=== PATIENT | female | born 1965 | race Two or more races ===

== ENCOUNTER 2017-05-04 10:03 | Emergency (ER) | payer BC, OTHER ==
[~2017-05-04] VITALS: Ht 154.9 cm; Wt 54.0 kg
[2017-05-04 10:13] VITALS: BP 108/60
[2017-05-04] MEDS ORDERED: KETOROLAC TROMETHAMINE INJ 60 MG/2 ML VIAL IM ONE (10:30)
[2017-05-04] MEDS ORDERED: KETOROLAC TROMETHAMINE INJ 30 MG/ML VIAL ONE (10:53)
--- NOTE | 2017-05-04 12:15 | NUR ---
Patient discharged to home in stable condition. Written and verbal after care instructions given. Patient verbalizes understanding of instruction.
== END 2017-05-04 12:15 | disposition home or self-care (01) ==
LOC: ER 10:08
DX: M54.5 Low back pain (principal); G89.29 Other chronic pain; G43.909 Migraine, unspecified, not intractable, without status migrainosus
CPT/HCPCS: 72131; 96372; 99284; A4606; J1885; Z7610

== ENCOUNTER 2017-05-18 09:39 | Outpatient (CLI) | payer BC, OTHER | END 2017-05-18 23:59 | disposition home or self-care (01) | LOC: MRI 09:39 | DX: M51.26 Other intervertebral disc displacement, lumbar region (principal); M51.27 Other intervertebral disc displacement, lumbosacral region; M48.07 Spinal stenosis, lumbosacral region; M48.06 Spinal stenosis, lumbar region; M41.86 Other forms of scoliosis, lumbar region; M89.8X8 Other specified disorders of bone, other site | CPT/HCPCS: 72148-TC ==

== ENCOUNTER 2017-06-06 09:57 | Outpatient (CLI) | payer BC, OTHER | END 2017-06-06 23:59 | disposition home or self-care (01) | LOC: RAD 09:57 | PROVIDERS: ATTEND Specialist | DX: M89.8X8 Other specified disorders of bone, other site (principal) | CPT/HCPCS: 78306; A9503 ==

== ENCOUNTER 2017-12-26 11:00 | Outpatient (CLI) | payer BC, OTHER | END 2017-12-26 23:59 | disposition home or self-care (01) | LOC: WOU 11:00 | PROVIDERS: ATTEND Podiatrist Foot & Ankle Surgery | DX: L60.0 Ingrowing nail (principal); M79.671 Pain in right foot | CPT/HCPCS: A6402; G0463 ==

== ENCOUNTER 2018-02-20 10:54 | Outpatient (CLI) | payer BC, OTHER | END 2018-02-20 23:59 | disposition home or self-care (01) | LOC: US 10:54 | DX: K21.0 Gastro-esophageal reflux disease with esophagitis (principal); R10.11 Right upper quadrant pain | CPT/HCPCS: 76700-TC ==

== ENCOUNTER 2018-02-28 11:12 | Outpatient (CLI) | payer BC, OTHER | END 2018-02-28 23:59 | disposition home or self-care (01) | LOC: WOU 11:12 | PROVIDERS: ATTEND Podiatrist Foot & Ankle Surgery | DX: M21.612 Bunion of left foot (principal) | CPT/HCPCS: G0463; Z7610 ==

== ENCOUNTER 2018-10-30 10:12 | Outpatient (CLI) | payer BC, OTHER | END 2018-10-30 23:59 | disposition home or self-care (01) | LOC: CT 10:12 | DX: N20.0 Calculus of kidney (principal); M41.86 Other forms of scoliosis, lumbar region ==

== ENCOUNTER 2018-11-04 11:30 | Outpatient (CLI) | payer BC, OTHER ==
[2018-11-04 11:48] LABS: APPEARANCE,URINE CLEAR (CLEAR); BILIRUBIN,URINE NEGATIVE (NEGATIVE); BLOOD, URINE NEGATIVE Ery/uL (NEGATIVE); COLOR,URINE YELLOW (YELLOW); KETONES,URINE NEGATIVE (NEGATIVE); LEUKOCYTE ESTERASE ,URINE 1+ (NEGATIVE); NITRITE, URINE NEGATIVE (NEGATIVE); PROTEIN,URINE NEGATIVE (NEGATIVE); UGLUCOSE NEGATIVE (NEGATIVE); UROBILINOGEN,URINE 0.2 EU/dL (0.2)
[2018-11-04 11:53] LABS: BACTERIA,URINE Few /HPF (None Seen); RBC,URINE 0-2 /HPF (0-2)
== END 2018-11-04 23:59 | disposition home or self-care (01) ==
LOC: LAB 11:30
DX: N39.0 Urinary tract infection, site not specified (principal)
CPT/HCPCS: 81000-TC; 87086-TC

== ENCOUNTER 2019-02-16 19:29 | Emergency (ER) | payer BC, OTHER ==
[~2019-02-16] VITALS: Ht 154.9 cm; Wt 54.0 kg
--- NOTE | 2019-02-16 19:55 | NUR ---
PT BIBSELF C/O R FLANK PAIN AND FEELING LIKE SHE CAN'T EMPTY HER BLADDER X 3 DAYS. PATIENT STATES SHE HAS HX UTI/KIDNEY STONES. PT AOX4. NAD NOTED. RESP EVEN AND UNLABORED. PT ON MONITOR IN BED 11 WITH FAMILY AT BEDSIDE. WILL CONTINUE TO MONITOR.
--- NOTE | 2019-02-16 20:07 | NUR ---
URINE SPECIMEN OBTAINED AND SENT TO THE LAB.
--- NOTE | 2019-02-16 20:18 | NUR ---
SENT URINE TO LAB
[2019-02-16] MEDS ORDERED: KETOROLAC TROMETHAMINE INJ 60 MG/2 ML VIAL IM ONE (20:30)
[2019-02-16 20:39] LABS: APPEARANCE,URINE Clear (CLEAR); BILIRUBIN,URINE Negative (NEGATIVE); BLOOD, URINE Trace-intact Ery/uL (NEGATIVE); COLOR,URINE Yellow (YELLOW); KETONES,URINE Negative (NEGATIVE); LEUKOCYTE ESTERASE ,URINE Small (NEGATIVE); NITRITE, URINE Negative (NEGATIVE); PROTEIN,URINE Negative (NEGATIVE); UGLUCOSE Negative (NEGATIVE); UROBILINOGEN,URINE 0.2 EU/dL (0.2)
[2019-02-16] MEDS ORDERED: KETOROLAC TROMETHAMINE INJ 30 MG/ML VIAL ONE (20:52)
[2019-02-16 20:59] VITALS: BP 103/68
[2019-02-16 21:03] LABS: BACTERIA,URINE Few /HPF (None Seen); SQUAMOUS EPITHELIAL CELL,UR Few /HPF (None Seen)
[2019-02-16] MEDS ORDERED: NITROFURANTOIN MACROCRYSTAL 50 MG CAPSULE PO STA (21:28)
[2019-02-16] MEDS ORDERED: NITROFURANTOIN/NITROFURAN MAC 100 MG CAPSULE ONE (21:40)
--- NOTE | 2019-02-16 21:45 | NUR ---
U/S COMPLETED. PT TOELRATED WELL.
[2019-02-16] MEDS ORDERED: TAMSULOSIN 0.4 MG CAP.SR.24H PO ONE (22:00)
[2019-02-16] MEDS ORDERED: TAMSULOSIN 0.4 MG CAP.SR.24H ONE (22:08)
--- NOTE | 2019-02-16 22:14 | NUR ---
Patient discharged to home in stable condition. Written and verbal after care instructions given. Patient verbalizes understanding of instruction. PT AMBULATORY WITH STEADY GAIT ACCOMPANIED BY FAMILY.
== END 2019-02-16 22:18 | disposition home or self-care (01) ==
LOC: ER 19:32
DX: N23 Unspecified renal colic (principal); G43.909 Migraine, unspecified, not intractable, without status migrainosus; M54.9 Dorsalgia, unspecified; G89.29 Other chronic pain; Z87.440 Personal history of urinary (tract) infections; Z87.442 Personal history of urinary calculi; Z98.890 Other specified postprocedural states
CPT/HCPCS: 76770; 81001; 87077; 87086; 87186; 96372; 99284; J1885; 81000-TC

== ENCOUNTER 2019-02-18 12:06 | Emergency (ER) | payer BC, OTHER ==
[~2019-02-18] VITALS: Ht 154.9 cm; Wt 53.5 kg
--- NOTE | 2019-02-18 12:25 | NUR ---
C/O ACEVEDO & RT FLANK PAIN RAD TO PELVIC AREA. PT WAS SEEN HERE LAST SUN DX W/ KIDNEY STONE PER PT. STATES SHE HAS NOT YET PASSED STONE, TOOK VICODIN LAST NIGHT. NO ACUTE DISTRESS NOTED, NO OTHER COMPLAINTS AT THIS TIME. PAIN IS 8/10. MADE COMFORTABLE AND READY FOR EVAL.
--- NOTE | 2019-02-18 12:35 | NUR ---
FRANK SALDIVAR AT BEDSIDE FOR EVAL
[2019-02-18] MEDS ORDERED: MORPHINE SULFATE INJ 2 MG/ML DISP.SYRIN ONE (12:51)
[2019-02-18] MEDS ORDERED: ONDANSETRON HCL/PF 4 MG/2 ML VIAL ONE (12:51)
[2019-02-18] MEDS ORDERED: ONDANSETRON HCL/PF 4 MG/2 ML VIAL IVP ONE (13:00)
[2019-02-18] MEDS ORDERED: IV NS 0.9% 1,000 ML BAG IV ONE (13:00)
[2019-02-18] MEDS ORDERED: MORPHINE SULFATE INJ 2 MG/ML DISP.SYRIN IV ONE (13:00)
[2019-02-18 13:03] LABS: BASOPHILS % (AUTO) 0.3 % (0.0-2.0); EOSINOPHILS % (AUTO) 5.6 % (0.0-6.0); HEMATOCRIT 38 % (33-45); HEMOGLOBIN 13.1 g/dL (11.5-14.8); LYMPHOCYTES # (AUTO) 0.5 /CMM (0.8-4.8); LYMPHOCYTES % (AUTO) 9.6 % (20.0-44.0); MEAN CORPUSCULAR HGB CONC 34 g/dl (31.0-36.0); MEAN CORPUSCULAR VOLUME 88 fL (82-100); MONOCYTES # (AUTO) 0.3 /CMM (0.1-1.30); MONOCYTES % (AUTO) 6.3 % (2.0-12.0); NEUTROPHILS # (AUTO) 3.8 /CMM (1.8-8.9); NEUTROPHILS % (AUTO) 78.2 % (43.0-81.0); PLATELET COUNT (AUTO) 147 /CMM (150-450); RED BLOOD CELL COUNT(AUTO) 4.39 MIL/uL (4.0-5.2); WHITE BLOOD COUNT (AUTO) 4.8 K/uL (4.3-11.0)
[2019-02-18 13:14] LABS: CALCIUM, SERUM 8.6 mg/dL (8.5-10.1); CREATININE 0.6 mg/dL (0.6-1.3); POTASSIUM 3.8 mmol/L (3.5-5.1)
[2019-02-18 13:24] LABS: APPEARANCE,URINE Clear (CLEAR); BILIRUBIN,URINE Negative (NEGATIVE); BLOOD, URINE Moderate Ery/uL (NEGATIVE); COLOR,URINE Yellow (YELLOW); KETONES,URINE Negative (NEGATIVE); PROTEIN,URINE Trace mg/dl (NEGATIVE); UGLUCOSE Negative (NEGATIVE); UROBILINOGEN,URINE 0.2 EU/dL (0.2)
[2019-02-18 13:30] LABS: LEUKOCYTE ESTERASE ,URINE NEGATIVE (NEGATIVE); NITRITE, URINE NEGATIVE (NEGATIVE)
[2019-02-18 13:31] LABS: BACTERIA,URINE Rare /HPF (None Seen); SQUAMOUS EPITHELIAL CELL,UR Few /HPF (None Seen)
--- NOTE | 2019-02-18 14:12 | NUR ---
IV removed. Catheter intact and site benign. Pressure and 4x4 applied to site. No bleeding noted.Patient discharged to home in stable condition. Written and verbal after care instructions given. Patient verbalizes understanding of instruction.
[2019-02-18 14:15] VITALS: BP 123/53
== END 2019-02-18 14:12 | disposition home or self-care (01) ==
LOC: ER 12:06
DX: G43.909 Migraine, unspecified, not intractable, without status migrainosus (principal); N23 Unspecified renal colic; G89.29 Other chronic pain; M54.9 Dorsalgia, unspecified; Z87.440 Personal history of urinary (tract) infections; Z87.442 Personal history of urinary calculi; Z98.890 Other specified postprocedural states
CPT/HCPCS: 36415; 80048; 81001; 85025; 87077; 87086; 87186; 96374; 96375; 99284; J2270; J2405; J7030; 81000-TC

== ENCOUNTER 2019-02-27 09:56 | Outpatient (CLI) | payer BC | END 2019-02-27 23:59 | disposition home or self-care (01) | LOC: US 09:56 | PROVIDERS: ATTEND Nurse Practitioner Acute Care | DX: I67.82 Cerebral ischemia (principal); G31.89 Other specified degenerative diseases of nervous system; N21.0 Calculus in bladder | CPT/HCPCS: 70551-TC; 76770-TC ==

== ENCOUNTER 2019-03-17 09:44 | Outpatient (CLI) | payer BC, OTHER ==
[2019-03-17 10:08] LABS: APPEARANCE,URINE CLEAR (CLEAR); BILIRUBIN,URINE NEGATIVE (NEGATIVE); BLOOD, URINE NEGATIVE Ery/uL (NEGATIVE); COLOR,URINE YELLOW (YELLOW); KETONES,URINE NEGATIVE (NEGATIVE); LEUKOCYTE ESTERASE ,URINE 1+ (NEGATIVE); NITRITE, URINE NEGATIVE (NEGATIVE); PROTEIN,URINE NEGATIVE (NEGATIVE); UGLUCOSE NEGATIVE (NEGATIVE); UROBILINOGEN,URINE 0.2 EU/dL (0.2)
[2019-03-17 10:18] LABS: BACTERIA,URINE Few /HPF (None Seen); RBC,URINE 0-2 /HPF (0-2); SQUAMOUS EPITHELIAL CELL,UR Few /HPF (None Seen); YEAST,URINE Rare /HPF (None Seen)
== END 2019-03-17 23:59 | disposition home or self-care (01) ==
LOC: LAB 09:44
DX: N39.0 Urinary tract infection, site not specified (principal)
CPT/HCPCS: 81000-TC; 87086-TC

== ENCOUNTER 2019-05-18 06:51 | Emergency (ER) | payer BC, OTHER ==
[~2019-05-18] VITALS: Ht 154.9 cm; Wt 51.7 kg
[2019-05-18 06:59] VITALS: BP 144/65
--- NOTE | 2019-05-18 07:07 | NUR ---
AT BEDSIDE FOR EVAL.
[2019-05-18] MEDS ORDERED: CYCLOBENZAPRINE 10 MG TABLET ONE (07:28)
[2019-05-18] MEDS ORDERED: ACETAMINOPHEN ES 500 MG TABLET ONE (07:28)
[2019-05-18] MEDS ORDERED: MORPHINE SULFATE INJ 4 MG/ML DISP.SYRIN ONE (07:28)
[2019-05-18] MEDS ORDERED: ACETAMINOPHEN ES 500 MG TABLET PO ONE (07:30)
[2019-05-18] MEDS ORDERED: CYCLOBENZAPRINE 10 MG TABLET PO ONE (07:30)
[2019-05-18] MEDS ORDERED: MORPHINE SULFATE INJ 2 MG/ML DISP.SYRIN IM ONE (07:30)
--- NOTE | 2019-05-18 07:36 | NUR ---
URINE SPECIMEN COLLECTED AND SENT TO LAB.
[2019-05-18 07:53] LABS: APPEARANCE,URINE Clear (CLEAR); BILIRUBIN,URINE Negative (NEGATIVE); BLOOD, URINE Trace-intact Ery/uL (NEGATIVE); COLOR,URINE Yellow (YELLOW); KETONES,URINE Negative (NEGATIVE); LEUKOCYTE ESTERASE ,URINE Negative (NEGATIVE); NITRITE, URINE Negative (NEGATIVE); PROTEIN,URINE Negative (NEGATIVE); UGLUCOSE Negative (NEGATIVE); UROBILINOGEN,URINE 0.2 EU/dL (0.2)
[2019-05-18 07:57] LABS: BACTERIA,URINE Rare /HPF (None Seen); RBC,URINE 0-2 /HPF (0-2); SQUAMOUS EPITHELIAL CELL,UR Few /HPF (None Seen); WBC,URINE 0-2 /HPF (0-3)
--- NOTE | 2019-05-18 08:10 | NUR ---
Patient discharged to home in stable condition. Written and verbal after care instructions given. Patient verbalizes understanding of instruction.
== END 2019-05-18 08:13 | disposition home or self-care (01) ==
LOC: ER 06:54
DX: M54.5 Low back pain (principal); G89.29 Other chronic pain; R03.0 Elevated blood-pressure reading, without diagnosis of hypertension; G43.909 Migraine, unspecified, not intractable, without status migrainosus; Z87.440 Personal history of urinary (tract) infections; Z87.442 Personal history of urinary calculi; Z98.890 Other specified postprocedural states
CPT/HCPCS: 81001; 96372; 99283; J2270; 81000-TC

== ENCOUNTER 2019-05-28 10:01 | Outpatient (CLI) | payer BC | END 2019-05-28 23:59 | disposition home or self-care (01) | LOC: MRI 10:01 | DX: M51.16 Intervertebral disc disorders with radiculopathy, lumbar region (principal); M53.3 Sacrococcygeal disorders, not elsewhere classified; M12.88 Other specific arthropathies, not elsewhere classified, other specified site | CPT/HCPCS: 72148-TC ==

== ENCOUNTER 2020-09-06 10:42 | Emergency (ER) | payer BC ==
[~2020-09-06] VITALS: Ht 154.9 cm; Wt 49.9 kg
[2020-09-06 10:49] VITALS: BP 138/72
== END 2020-09-06 11:13 | disposition home or self-care (01) ==
LOC: ER 10:43
DX: J02.9 Acute pharyngitis, unspecified (principal); Z20.828 Contact with and (suspected) exposure to other viral communicable diseases
CPT/HCPCS: 87426; 99283; C9803

== ENCOUNTER 2020-09-17 09:16 | Outpatient (CLI) | payer BC | END 2020-09-17 23:59 | disposition home or self-care (01) | LOC: RAD 09:16 | DX: M50.821 Other cervical disc disorders at C4-C5 level (principal); M43.12 Spondylolisthesis, cervical region | CPT/HCPCS: 72040-TC ==

== ENCOUNTER 2020-10-24 17:49 | Emergency (ER) | payer BC ==
[~2020-10-24] VITALS: Ht 154.9 cm; Wt 50.8 kg
[2020-10-24 18:07] VITALS: BP 137/71
[2020-10-24] MEDS ORDERED: ACETAMINOPHEN ES 500 MG TABLET ONE ×2 (18:29→18:45)
[2020-10-24] MEDS ORDERED: ACETAMINOPHEN 325 MG TABLET PO ONE (18:30)
[2020-10-24] MEDS ORDERED: BACI30OI9 TP (19:13)
[2020-10-24] MEDS ORDERED: IBUP-1955 PO (19:13)
== END 2020-10-24 19:35 | disposition home or self-care (01) ==
LOC: ER 17:54
DX: S02.82XA Fracture of other specified skull and facial bones, left side, initial encounter for closed fracture (principal); S60.812A Abrasion of left wrist, initial encounter; S50.312A Abrasion of left elbow, initial encounter; G43.909 Migraine, unspecified, not intractable, without status migrainosus; M54.9 Dorsalgia, unspecified; G89.29 Other chronic pain; Z87.442 Personal history of urinary calculi; Z87.440 Personal history of urinary (tract) infections; Z98.890 Other specified postprocedural states; Z79.899 Other long term (current) drug therapy; W01.0XXA Fall on same level from slipping, tripping and stumbling without subsequent striking against object, initial encounter; Y93.01 Activity, walking, marching and hiking; Y92.89 Other specified places as the place of occurrence of the external cause; Y99.8 Other external cause status
CPT/HCPCS: 73080-TC; 73110

== ENCOUNTER 2021-01-05 14:44 | Outpatient (CLI) | payer BC ==
[~2021-01-05 14:44] MED LIST: BACI30OI9 TP; IBUP-1955 PO
== END 2021-01-05 23:59 | disposition home or self-care (01) ==
LOC: WOU 14:44
PROVIDERS: ATTEND Podiatrist Foot & Ankle Surgery
DX: L60.0 Ingrowing nail (principal); M20.12 Hallux valgus (acquired), left foot; B35.1 Tinea unguium; M79.672 Pain in left foot
CPT/HCPCS: 73630-TC; 88304-TC; 88311-TC; 88312-TC; G0463

== ENCOUNTER 2021-01-12 14:30 | Outpatient (CLI) | payer BC | END 2021-01-12 23:59 | disposition home or self-care (01) | LOC: WOU 14:30 | PROVIDERS: ATTEND Podiatrist Foot & Ankle Surgery | DX: M20.12 Hallux valgus (acquired), left foot (principal); B35.1 Tinea unguium; L60.0 Ingrowing nail; M79.672 Pain in left foot | CPT/HCPCS: G0463 ==

== ENCOUNTER 2021-02-20 19:25 | Emergency (ER) | payer BC ==
[~2021-02-20] VITALS: Ht 154.9 cm; Wt 50.8 kg
--- NOTE | 2021-02-20 19:35 | NUR ---
PRESENTED TO THE ER FOR C/O L FLANK AND URINARY FREQUENCY X 1 DAY. HX OF LEFT KIDNEY STONE.
--- NOTE | 2021-02-20 19:40 | NUR ---
DR GUNTER AT BED SIDE
--- NOTE | 2021-02-20 19:51 | NUR ---
URINE COLLECTED AND SENT TO LAB, PT WAS TAKEN TO CT BY W/C
[2021-02-20 19:59] LABS: BASOPHILS % (AUTO) 0.2 % (0.0-2.0); EOSINOPHILS % (AUTO) 0.1 % (0.0-6.0); HEMATOCRIT 40 % (33-45); HEMOGLOBIN 13.5 g/dL (11.5-14.8); LYMPHOCYTES # (AUTO) 0.9 /CMM (0.8-4.8); LYMPHOCYTES % (AUTO) 14.2 % (20.0-44.0); MEAN CORPUSCULAR HGB CONC 34 g/dl (31.0-36.0); MEAN CORPUSCULAR VOLUME 89 fL (82-100); MONOCYTES # (AUTO) 0.5 /CMM (0.1-1.30); MONOCYTES % (AUTO) 8.2 % (2.0-12.0); NEUTROPHILS # (AUTO) 5.1 /CMM (1.8-8.9); NEUTROPHILS % (AUTO) 77.3 % (43.0-81.0); PLATELET COUNT (AUTO) 180 /CMM (150-450); RED BLOOD CELL COUNT(AUTO) 4.49 MIL/uL (4.0-5.2); WHITE BLOOD COUNT (AUTO) 6.6 K/uL (4.3-11.0)
[2021-02-20 20:08] LABS: BILIRUBIN,URINE NEGATIVE (NEGATIVE); COLOR,URINE YELLOW (YELLOW); LEUKOCYTE ESTERASE ,URINE MODERATE (NEGATIVE); NITRITE, URINE NEGATIVE (NEGATIVE); PROTEIN,URINE NEGATIVE (NEGATIVE); UGLUCOSE NEGATIVE (NEGATIVE); UROBILINOGEN,URINE 0.2 EU/dL (0.2)
[2021-02-20 20:17] LABS: BACTERIA,URINE 2+ /HPF (None Seen); SQUAMOUS EPITHELIAL CELL,UR 0-2 /HPF (None Seen); WBC,URINE 21-50 /HPF (0-3)
[2021-02-20 20:17] LABS: CALCIUM, SERUM 8.8 mg/dL (8.5-10.1); CREATININE 0.7 mg/dL (0.6-1.3)
[2021-02-20] MEDS ORDERED: CEPH500C2 PO (21:53)
--- NOTE | 2021-02-20 22:24 | NUR ---
Patient discharged to home in stable condition. Written and verbal after care instructions given. Patient verbalizes understanding of instruction. ambulatory with a steady gait noted.
[2021-02-20 22:25] VITALS: BP 132/64
== END 2021-02-20 22:25 | disposition home or self-care (01) ==
LOC: ER 19:26
DX: N39.0 Urinary tract infection, site not specified (principal); G43.909 Migraine, unspecified, not intractable, without status migrainosus; G89.29 Other chronic pain; Z98.890 Other specified postprocedural states; Z87.442 Personal history of urinary calculi
CPT/HCPCS: 36415; 80048-TC; 81001; 85025-TC; 87086-TC

== ENCOUNTER 2021-04-21 10:58 | Outpatient (CLI) | payer BC ==
[~2021-04-21 10:58] MED LIST changes: +CEPH500C2 PO
[2021-04-21 11:59] LABS: BASOPHILS % (AUTO) 0.3 % (0.0-2.0); BILIRUBIN,URINE NEGATIVE (NEGATIVE); COLOR,URINE YELLOW (YELLOW); EOSINOPHILS % (AUTO) 0.8 % (0.0-6.0); HEMATOCRIT 41 % (33-45); LEUKOCYTE ESTERASE ,URINE NEGATIVE (NEGATIVE); LYMPHOCYTES # (AUTO) 1.1 K/uL (0.8-4.8); MEAN CORPUSCULAR HGB CONC 34 g/dl (31.0-36.0); MEAN CORPUSCULAR VOLUME 88 fL (82-100); MONOCYTES # (AUTO) 0.5 K/uL (0.1-1.30); MONOCYTES % (AUTO) 10.2 % (2.0-12.0); NEUTROPHILS # (AUTO) 3.1 K/uL (1.8-8.9); NEUTROPHILS % (AUTO) 64.7 % (43.0-81.0); NITRITE, URINE NEGATIVE (NEGATIVE); PH,URINE 5.5 (5.0-8.0); PLATELET COUNT (AUTO) 182 K/uL (150-450); PROTEIN,URINE NEGATIVE (NEGATIVE); RED BLOOD CELL COUNT(AUTO) 4.65 MIL/uL (4.0-5.2); UGLUCOSE NEGATIVE (NEGATIVE); UROBILINOGEN,URINE 0.2 EU/dL (0.2); WHITE BLOOD COUNT (AUTO) 4.7 K/uL (4.3-11.0)
[2021-04-21 12:13] LABS: BACTERIA,URINE None seen /HPF (None Seen); RBC,URINE 0-2 /HPF (0-2); SQUAMOUS EPITHELIAL CELL,UR Few /HPF (None Seen); WBC,URINE NONE SEEN /HPF (0-3)
[2021-04-21 12:40] LABS: C-REACTIVE PROTEIN 0.2 mg/dL (0.0-0.9); THYROID STIMULATING HORMONE 1.713 uIU/mL (0.358-3.74)
[2021-04-21 12:52] LABS: ALBUMIN 3.9 g/dL (3.4-5.0); BILIRUBIN,TOTAL 0.5 mg/dL (0.2-1.0); CALCIUM, SERUM 9.2 mg/dL (8.5-10.1); CREATININE 0.6 mg/dL (0.6-1.3); POTASSIUM 4.1 mmol/L (3.5-5.1)
[2021-04-22 08:07] LABS: IMMUNOGLOBULIN A, SERUM 200 mg/dL (87-352); T3 TOTAL 81 ng/dL (71-180); THYROID PEROXIDASE (TPO) AB <8 IU/mL (0-34)
== END 2021-04-21 23:59 | disposition home or self-care (01) ==
LOC: LAB 10:58
PROVIDERS: ATTEND Internal Medicine
DX: R00.2 Palpitations (principal)
CPT/HCPCS: 36415; 80053-TC; 80061-TC; 81001; 82306; 82607-TC; 82728-TC; 82784; 83540-TC; 84439-TC; 84443-TC; 84480; 85025-TC; 85652-TC; 86140-TC; 86376; 86800

== ENCOUNTER 2022-01-16 19:35 | Emergency (ER) | payer BC, OTHER ==
[~2022-01-16] VITALS: Ht 154.9 cm; Wt 51.7 kg
[2022-01-16 19:57] VITALS: BP 110/64
[2022-01-16] MEDS ORDERED: IBUP-1957 PO (20:11)
--- NOTE | 2022-01-16 20:19 | NUR ---
Patient discharged to home in stable condition. Written and verbal after care instructions given. Patient verbalizes understanding of instruction.
== END 2022-01-16 22:08 | disposition home or self-care (01) ==
LOC: ER 19:40
DX: J04.0 Acute laryngitis (principal); G43.909 Migraine, unspecified, not intractable, without status migrainosus; G89.29 Other chronic pain; Z98.890 Other specified postprocedural states

== ENCOUNTER 2022-07-06 12:51 | Outpatient (CLI) | payer BC, OTHER ==
[~2022-07-06 12:51] MED LIST changes: +IBUP-1957 PO
== END 2022-07-06 23:59 | disposition home or self-care (01) ==
LOC: MRI 12:51
PROVIDERS: ATTEND Internal Medicine
DX: M25.78 Osteophyte, vertebrae (principal); M54.12 Radiculopathy, cervical region
CPT/HCPCS: 72141-TC

== ENCOUNTER 2022-12-25 11:55 | Emergency (ER) | payer BC, OTHER ==
[~2022-12-25] VITALS: Ht 154.9 cm; Wt 52.2 kg
[2022-12-25 12:04] VITALS: BP 128/77
--- NOTE | 2022-12-25 12:04 | NUR ---
C/O LEFT EAR PAIN X 3 DAYS. VITALS ARE WITHIN NORMAL LIMITS.
[2022-12-25] MEDS ORDERED: NEOM10DR11 LEFT EAR (12:11)
--- NOTE | 2022-12-25 12:15 | NUR ---
Patient discharged to home in stable condition. Written and verbal after care instructions given. Patient verbalizes understanding of instruction.
== END 2022-12-25 12:16 | disposition home or self-care (01) ==
LOC: ER 11:55
DX: H60.92 Unspecified otitis externa, left ear (principal); G43.909 Migraine, unspecified, not intractable, without status migrainosus; G89.29 Other chronic pain; Z87.442 Personal history of urinary calculi; Z87.440 Personal history of urinary (tract) infections

== ENCOUNTER 2023-09-27 14:55 | Emergency (ER) | payer BC, OTHER ==
[~2023-09-27] VITALS: Ht 154.9 cm; Wt 50.8 kg
[~2023-09-27 14:55] MED LIST changes: +NEOM10DR11 LEFT EAR
[2023-09-27 15:40] LABS: BASOPHILS % (AUTO) 0.4 % (0.0-2.0); EOSINOPHILS % (AUTO) 0.4 % (0.0-6.0); HEMATOCRIT 43 % (33-45); HEMOGLOBIN 14.4 g/dL (11.5-14.8); LYMPHOCYTES # (AUTO) 1.2 K/uL (0.8-4.8); LYMPHOCYTES % (AUTO) 20.6 % (20.0-44.0); MEAN CORPUSCULAR HEMOGLOBIN 30 PG (26.0-33.0); MEAN CORPUSCULAR HGB CONC 34 g/dl (31.0-36.0); MEAN CORPUSCULAR VOLUME 88 fL (82-100); MONOCYTES # (AUTO) 0.4 K/uL (0.1-1.30); MONOCYTES % (AUTO) 6.8 % (2.0-12.0); NEUTROPHILS # (AUTO) 4.3 K/uL (1.8-8.9); NEUTROPHILS % (AUTO) 71.8 % (43.0-81.0); PLATELET COUNT (AUTO) 167 K/uL (150-450); RED BLOOD CELL COUNT(AUTO) 4.85 MIL/uL (4.0-5.2); RED CELL DISTRIBUTION WIDTH 13.4 % (11.5-15.0)
[2023-09-27 15:49] LABS: CALCIUM, SERUM 9.4 mg/dL (8.5-10.1); CHLORIDE 102 mmol/L (98-107); CREATININE 0.6 mg/dL (0.6-1.3); GLUCOSE 108 mg/dL (74-106); POTASSIUM 3.7 mmol/L (3.5-5.1); SODIUM SERUM 138 mmol/L (136-145); UREA NITROGEN, BLOOD 14 mg/dL (7-18)
[2023-09-27] MEDS ORDERED: PANTOPRAZOLE 40 MG VIAL ONE (15:59)
[2023-09-27] MEDS ORDERED: MAG HYDROX/AL HYDROX/SIMETH 30 ML UDC ONE (15:59)
[2023-09-27 16:00] LABS: CARBON DIOXIDE 27 mmol/L (21-32)
[2023-09-27] MEDS ORDERED: LIDOCAINE VISCOUS 2% UD 15 ML UDC ONE (16:00)
[2023-09-27] MEDS: LIDOCAINE VISCOUS 2% UD 15 ML UDC MM ONE (16:06)
[2023-09-27] MEDS: MAG HYDROX/AL HYDROX/SIMETH 30 ML UDC PO ONE (16:06)
[2023-09-27] MEDS: PANTOPRAZOLE 40 MG VIAL IV ONE (16:07)
[2023-09-27 17:06] VITALS: BP 116/64; TEMP 98.2; O2SAT 99
== END 2023-09-27 17:06 | disposition home or self-care (01) ==
LOC: ER 14:55
DX: R10.13 Epigastric pain (principal); G43.909 Migraine, unspecified, not intractable, without status migrainosus; Z79.899 Other long term (current) drug therapy
CPT/HCPCS: 99285; 96374; 71045; 93005; 85025; 80048; 36415; 84484; C9113

== ENCOUNTER 2024-04-10 07:21 | Emergency (ER) | payer BC, OTHER ==
[~2024-04-10] VITALS: Ht 154.9 cm; Wt 78.0 kg
[2024-04-10 07:34] VITALS: BP 112/77; TEMP 98.8; O2SAT 100
== END 2024-04-10 08:07 | disposition home or self-care (01) ==
LOC: ER 07:36
DX: H00.011 Hordeolum externum right upper eyelid (principal); G43.909 Migraine, unspecified, not intractable, without status migrainosus; G89.29 Other chronic pain; M54.9 Dorsalgia, unspecified; Z87.19 Personal history of other diseases of the digestive system; Z87.442 Personal history of urinary calculi; Z87.440 Personal history of urinary (tract) infections

== ENCOUNTER 2024-06-22 19:42 | Emergency (ER) | payer BC, OTHER ==
[~2024-06-22] VITALS: Ht 154.9 cm; Wt 50.8 kg
[2024-06-22 19:46] VITALS: BP 121/51; TEMP 98; O2SAT 97
[2024-06-22] MEDS ORDERED: ERYT3.5O9 EACHEYE (19:57)
== END 2024-06-22 20:01 | disposition home or self-care (01) ==
LOC: ER 19:49
DX: H00.011 Hordeolum externum right upper eyelid (principal); Z87.442 Personal history of urinary calculi; G43.909 Migraine, unspecified, not intractable, without status migrainosus; Z79.1 Long term (current) use of non-steroidal anti-inflammatories (NSAID); Z87.19 Personal history of other diseases of the digestive system; Z87.440 Personal history of urinary (tract) infections

== ENCOUNTER 2025-08-11 19:46 | Emergency (ER) | payer BC, OTHER ==
[~2025-08-11] VITALS: Ht 154.9 cm; Wt 50.8 kg
[~2025-08-11 19:46] MED LIST changes: +ERYT3.5O9 EACHEYE
[2025-08-11] MEDS: TETRACAINE/BENZOCAINE/BUTAMBEN 56 GM SPRAY TP ONE (20:46)
[2025-08-11] MEDS ORDERED: BENZ1LOZ77 PO (20:47)
[2025-08-11 21:05] VITALS: BP 125/82; TEMP 98.5; O2SAT 99
== END 2025-08-11 21:06 | disposition home or self-care (01) ==
LOC: ER 19:53
DX: J35.8 Other chronic diseases of tonsils and adenoids (principal); G89.29 Other chronic pain; M54.9 Dorsalgia, unspecified; Z79.1 Long term (current) use of non-steroidal anti-inflammatories (NSAID); Z87.19 Personal history of other diseases of the digestive system